=== PATIENT | female | born 1945 | race Caucasian/White ===

== ENCOUNTER 2018-02-15 10:53 | Emergency (ER) | payer BC, MEDICARE, OTHER | END 2018-02-15 11:45 | disposition home or self-care (01) | LOC: EDH 10:53 | DX: S60.042A Contusion of left ring finger without damage to nail, initial encounter (principal); E11.9 Type 2 diabetes mellitus without complications; Z88.0 Allergy status to penicillin; Z85.42 Personal history of malignant neoplasm of other parts of uterus; Z90.710 Acquired absence of both cervix and uterus; Z87.891 Personal history of nicotine dependence; W22.8XXA Striking against or struck by other objects, initial encounter; Y93.89 Activity, other specified; Y92.098 Other place in other non-institutional residence as the place of occurrence of the external cause; Y99.8 Other external cause status | CPT/HCPCS: 73140 ==

== ENCOUNTER 2018-07-29 06:28 | Day surgery (SDC) | payer OTHER ==
[2018-07-27 15:04] VITALS: BP 126/55
[2018-07-29] VITALS (15 sets, daily range): BP systolic 115–136; BP diastolic 59–79
[~2018-07-29] VITALS: Ht 172.7 cm; Wt 107.4 kg
[~2018-07-29 06:28] MED LIST: ASCO10007 PO; CALC-866 PO; FEXO-59 PO; LEVOFLOXACIN 500 MG/D5W 100 ML 100 ML IV SCH; LOSA50TA25 PO; METF500S7 PO; MIRA25TA PO
[2018-07-29] MEDS ORDERED: SODIUM CHLORIDE 0.9% 1000ML 1,000 ML IV ONE (06:51)
[2018-07-29] MEDS ORDERED: FENTANYL CITRATE PF 50 MCG/1 ML 2ML VIAL ONE (07:54)
[2018-07-29] MEDS ORDERED: SUCCINYLCHOLINE CHLORIDE 20 MG/ML 10 ML VIAL ONE (07:54)
[2018-07-29] MEDS ORDERED: LIDOCAINE PF 2% 5ML ABBOJECT ONE (07:54)
[2018-07-29] MEDS ORDERED: PROPOFOL 10 MG/ML 20ML VIAL IV ONE (07:54)
[2018-07-29] MEDS ORDERED: GLYCOPYRROLATE 1 MG/5 ML SYRINGE ONE (08:38)
== END 2018-07-29 11:30 | disposition home or self-care (01) ==
LOC: DAH 06:28
PROVIDERS: ATTEND Urology
DX: N20.0 Calculus of kidney (principal); I10 Essential (primary) hypertension; Z85.42 Personal history of malignant neoplasm of other parts of uterus; N32.81 Overactive bladder; Z88.0 Allergy status to penicillin; Z79.899 Other long term (current) drug therapy; Z98.890 Other specified postprocedural states; E11.9 Type 2 diabetes mellitus without complications; Z79.84 Long term (current) use of oral hypoglycemic drugs
CPT/HCPCS: 50590; 82948 ×2; 93005; A4510; A4600; J0330; J1956; J2001; J2704; J3010; J3490; J7030

== ENCOUNTER 2021-01-21 17:38 | Emergency (ER) | payer MEDICARE, OTHER ==
[~2021-01-21 17:38] MED LIST changes: -ASCO10007 PO; -LEVOFLOXACIN 500 MG/D5W 100 ML 100 ML IV SCH; -LOSA50TA25 PO; +LOSA50TA64 PO
[2021-01-21] MEDS ORDERED: ACETAMINOPHEN EXTRA STRENGTH 500 MG TABLET ONE (18:52)
[2021-01-21] MEDS ORDERED: HYDROCODONE/ACETAMINOPHEN 10/325 MG TAB ONE (20:10)
== END 2021-01-21 20:37 | disposition home or self-care (01) ==
LOC: EDH 17:38
DX: S42.255A Nondisplaced fracture of greater tuberosity of left humerus, initial encounter for closed fracture (principal); M48.56XA Collapsed vertebra, not elsewhere classified, lumbar region, initial encounter for fracture; E11.9 Type 2 diabetes mellitus without complications; Z88.0 Allergy status to penicillin; Z90.710 Acquired absence of both cervix and uterus; W18.39XA Other fall on same level, initial encounter; Y93.89 Activity, other specified; Y92.89 Other specified places as the place of occurrence of the external cause; Y99.8 Other external cause status
CPT/HCPCS: 72100; 73060

== ENCOUNTER → 2022-05-28 | Outpatient (CLI) | payer MEDICARE ==
[~2022-05-28] MED LIST changes: +FEXO-263 PO; -FEXO-59 PO; -METF500S7 PO; +METF500S9 PO
== END | disposition home or self-care (01) ==
LOC: RAH 13:57
PROVIDERS: ATTEND Nurse Practitioner Family
DX: S32.000A Wedge compression fracture of unspecified lumbar vertebra, initial encounter for closed fracture (principal); M43.16 Spondylolisthesis, lumbar region; M47.816 Spondylosis without myelopathy or radiculopathy, lumbar region; M51.9 Unspecified thoracic, thoracolumbar and lumbosacral intervertebral disc disorder; X58.XXXA Exposure to other specified factors, initial encounter; Y93.89 Activity, other specified; Y92.89 Other specified places as the place of occurrence of the external cause; Y99.8 Other external cause status
CPT/HCPCS: 72148

== ENCOUNTER → 2023-03-10 | Outpatient (CLI) | payer MEDICARE ==
[2023-03-10 15:46] LABS: ALBUMIN 3.2 g/dL (3.5-5.0); CREATININE 0.7 mg/dL (0.5-1.5); POTASSIUM 3.5 mmol/L (3.5-5.1); TOTAL PROTEIN, SERUM 6.5 g/dL (6.0-8.3)
== END | disposition home or self-care (01) ==
LOC: LAB 13:51
PROVIDERS: ATTEND Internal Medicine Gastroenterology
DX: R10.31 Right lower quadrant pain (principal)
CPT/HCPCS: 36415; 80053

== ENCOUNTER → 2023-03-16 | Outpatient (CLI) | payer MEDICARE ==
[~2023-03-16] MED LIST changes: +IOHEXOL 350 MG/ML 100ML INFUS..BTL IV ONE
== END | disposition home or self-care (01) ==
LOC: RAH 09:16
PROVIDERS: ATTEND Internal Medicine Gastroenterology
DX: N28.1 Cyst of kidney, acquired (principal); R10.31 Right lower quadrant pain; N20.0 Calculus of kidney; I70.0 Atherosclerosis of aorta; K46.9 Unspecified abdominal hernia without obstruction or gangrene
CPT/HCPCS: 74177; Q9967

== ENCOUNTER 2024-02-19 10:27 | Emergency (ER) | payer MEDICARE ==
[~2024-02-19] VITALS: Ht 165.1 cm; Wt 76.7 kg
[~2024-02-19 10:27] MED LIST changes: -IOHEXOL 350 MG/ML 100ML INFUS..BTL IV ONE
[2024-02-19 11:32] LABS: RAPID GROUP A STREP negative (NEGATIVE)
[2024-02-19 11:34] LABS: SARS-CoV-2, RNA, NAAT NEGATIVE SARS CoV-2 (NEGATIVE)
[2024-02-19 11:42] LABS: INFLUENZA TYPE A Negative For Type A (NEGATIVE); INFLUENZA TYPE B Negative For Type B (NEGATIVE)
[2024-02-19] MEDS: DEXAMETHASONE SOD PHOSPHATE 4 MG/ML 1ML VIAL IM ONE (12:32)
[2024-02-19] MEDS ORDERED: AZIT250T9 PO (12:36)
[2024-02-19 12:45] VITALS: PULSE 64; RESP 20
[2024-02-19 13:06] VITALS: BP 126/72; PULSE 65; RESP 16; O2SAT 100
[2024-02-19] MEDS: ALBUTEROL 0.083% 2.5 MG/3 ML INH IH ONE (13:08)
== END 2024-02-19 13:08 | disposition home or self-care (01) ==
LOC: EDH 10:27
DX: J20.9 Acute bronchitis, unspecified (principal); J32.9 Chronic sinusitis, unspecified; I10 Essential (primary) hypertension; Z20.822 Contact with and (suspected) exposure to COVID-19; Z79.84 Long term (current) use of oral hypoglycemic drugs; Z79.899 Other long term (current) drug therapy; Z90.49 Acquired absence of other specified parts of digestive tract; Z90.710 Acquired absence of both cervix and uterus; Z98.890 Other specified postprocedural states; Z88.0 Allergy status to penicillin
CPT/HCPCS: 99284; 71045; 87635; 87880; 87804 ×2; 96372; 94640; J1100

== ENCOUNTER → 2024-07-31 | Outpatient (CLI) | payer MEDICARE ==
[~2024-07-31] MED LIST changes: -CALC-866 PO; -FEXO-263 PO; +HYDR-4060 PO; +LORA10TA7 PO; -METF500S9 PO
--- NOTE | 2024-07-31 11:40 | HMCIMG ---
US PELVIC NON-OB COMP HISTORY: Abdominal pain COMPARISON: None TECHNIQUE: Transabdominal pelvic ultrasound study was performed. FINDINGS: The uterus has been removed. Both ovaries are not seen. The study is limited due to overlying bowel gas. No free fluid is seen in the cul-de-sac. IMPRESSION: 1. No adnexal mass is seen. Post hysterectomy.
--- NOTE | 2024-07-31 11:41 | HMCIMG ---
US ABDOMINAL COMPLETE HISTORY: Abdominal pain COMPARISON: None TECHNIQUE: Multiple transverse and longitudinal ultrasound images of the abdomen were obtained. FINDINGS: Abdominal aorta and inferior vena cava are not well visualized due to overlying bowel gas. Liver measures 16.3 cm.. Pancreas not well seen limiting evaluation. Liver is echogenic consistent with liver parenchymal disease. Gallbladder has been removed. Common duct measures 5 mm. There are bilateral renal cysts with the largest on the right measuring 5.6 cm and on the left measuring 6.6 cm. Both kidneys are seen. Right kidney measures cm. Left kidney measures cm. No hydronephrosis is seen of the both kidneys. The spleen is grossly unremarkable. IMPRESSION: 1. Post cholecystectomy. No ductal dilatation is seen. 2. No hydronephrosis is seen.
== END | disposition home or self-care (01) ==
LOC: RAH 10:14
PROVIDERS: ATTEND Nurse Practitioner Family
DX: N28.1 Cyst of kidney, acquired (principal); R10.2 Pelvic and perineal pain; R10.9 Unspecified abdominal pain; Z90.49 Acquired absence of other specified parts of digestive tract; Z90.710 Acquired absence of both cervix and uterus
CPT/HCPCS: 76700; 76856